=== PATIENT | male | born 1980 | race Caucasian/White ===

== ENCOUNTER 2018-05-05 07:20 | Emergency (ER) | payer MEDICAID, OTHER ==
[~2018-05-05] VITALS: Ht 170.2 cm; Wt 86.4 kg
[~2018-05-05 07:20] MED LIST: IBUP-812 PO; NO HOME MEDS; ONDA4TAB59 PO
[2018-05-05] MEDS ORDERED: ketorolac tromethamine 15mg/ml inj. IV ONE (08:15)
[2018-05-05] MEDS ORDERED: normal saline 1000ML IV soln IVB ONE (08:15)
[2018-05-05 08:20] LABS: BASOPHILS % (AUTO) 0.3 % (0-1); EOSINOPHILS # (AUTO) 0.1 X10'3 (0-0.9); EOSINOPHILS % (AUTO) 1.3 % (0-6); HEMATOCRIT 47.8 % (42.0-52.0); HEMOGLOBIN 16.3 g/dl (14.0-17.9); LYMPHOCYTES # (AUTO) 1.6 X10'3 (1.1-4.8); LYMPHOCYTES % (AUTO) 26.7 % (21-51); MEAN CORPUSCULAR HEMOGLOBIN 32.4 PG (27.0-31.0); MEAN CORPUSCULAR HGB CONC 34.1 g/dL (33.0-36.5); MEAN CORPUSCULAR VOLUME 94.9 FL (78-98); MEAN PLATELET VOLUME 10.1 FL (7.4-10.4); MONOCYTES # (AUTO) 0.5 X10'3 (0-0.9); MONOCYTES % (AUTO) 8.6 % (2-12); NEUTROPHILS # (AUTO) 3.7 X10'3 (1.8-7.7); NEUTROPHILS % (AUTO) 63.1 % (42-75); PLATELET COUNT 155 X10'3 (140-440); RED BLOOD COUNT 5.04 X10'6 (4.70-6.10); RED CELL DISTRIBUTION WIDTH 13.3 % (11.5-14.5); WHITE BLOOD COUNT 5.9 X10'3 (4.5-11.0)
[2018-05-05 08:36] LABS: ALANINE AMINOTRANSFERASE 25 U/L (12-78); ALBUMIN 3.6 G/DL (3.4-5.0); ALKALINE PHOSPHATASE 45 IU/L (46-116); ANION GAP 6 (8-16); ASPARTATE AMINO TRANSFERASE 18 U/L (10-37); BILIRUBIN,TOTAL 0.4 MG/DL (0.1-1.0); BLOOD UREA NITROGEN 22 MG/DL (7-18); BUN/CREATININE RATIO 22.9 (5.4-32.0); CHLORIDE 106 MMOL/L (99-107); CREATININE 0.96 MG/DL (0.60-1.10); GLUCOSE 94 MG/DL (70-104); LIPASE 168 U/L (73-393); POTASSIUM 4.3 MMOL/L (3.5-5.1); SODIUM 140 MMOL/L (135-145); TOTAL CARBON DIOXIDE 28.2 MMOL/L (24-32); TOTAL PROTEIN 7.1 G/DL (6.4-8.2); eGFR 87 ML/MIN
--- NOTE | 2018-05-05 09:48 | NUR ---
PT. IV FLUID IS COMPLETE. IV FLUSHED WITH SAILINE FLUSH. PT. AMBULATED TO THE BATHROOM TO GIVE A URINE SAMPLE.
[2018-05-05] MEDS ORDERED: OMEP40CA37 PO (10:10)
[2018-05-05 10:29] VITALS: BP 131/90
== END 2018-05-05 10:31 | disposition home or self-care (01) ==
LOC: ER 07:21
DX: R10.32 Left lower quadrant pain (principal); R19.7 Diarrhea, unspecified; R10.84 Generalized abdominal pain; F12.90 Cannabis use, unspecified, uncomplicated; Z86.14 Personal history of Methicillin resistant Staphylococcus aureus infection; Z79.899 Other long term (current) drug therapy
CPT/HCPCS: 36415; 74176; 80053; 83690; 85025; 85610; 96361; 96374; 99284; J1885; J7030

== ENCOUNTER 2019-07-21 18:09 | Emergency (ER) | payer MEDICAID, OTHER ==
[~2019-07-21] VITALS: Ht 170.2 cm; Wt 86.4 kg
--- NOTE | 2019-07-21 19:47 | NUR ---
pt refusing c-collar, he states it makes him "feel better when it's off" he was instructed on the risk of taking c-collar off.
[2019-07-21] MEDS ORDERED: ibuprofen tablet 400 MG TABLET PO ONE (19:55)
[2019-07-21] MEDS ORDERED: TETanus/Pertussis (Acell)/Diphther VAC/PF (Tdap-Adult) 0.5ml syringe IMVAC ONE (19:55)
[2019-07-21 20:08] VITALS: BP 120/85
[2019-07-21] MEDS ORDERED: IBUP-1984 PO (20:12)
== END 2019-07-21 20:35 | disposition home or self-care (01) ==
LOC: ER 18:10
DX: S50.812A Abrasion of left forearm, initial encounter (principal); S50.811A Abrasion of right forearm, initial encounter; F12.90 Cannabis use, unspecified, uncomplicated; Z86.14 Personal history of Methicillin resistant Staphylococcus aureus infection; Z79.899 Other long term (current) drug therapy; V89.2XXA Person injured in unspecified motor-vehicle accident, traffic, initial encounter; Y93.55 Activity, bike riding; Y92.89 Other specified places as the place of occurrence of the external cause; Y99.8 Other external cause status
CPT/HCPCS: 90471; 90715; 99283

== ENCOUNTER 2021-07-07 09:18 | Emergency (ER) | payer OTHER ==
[~2021-07-07] VITALS: Ht 170.2 cm; Wt 84.1 kg
[2021-07-07 09:59] VITALS: BP 129/85
[2021-07-07] MEDS ORDERED: BUPIVAcaine/PF 7.5 mg/ml (0.75%) 30ml vial IJ ONE (11:00)
[2021-07-07] MEDS ORDERED: naproxen 500mg tablet PO ONE (11:00)
[2021-07-07] MEDS ORDERED: diazepam 5mg tablet PO ONE (12:00)
[2021-07-07] MEDS ORDERED: DIAZ5TAB22 PO (12:34)
== END 2021-07-07 13:13 | disposition home or self-care (01) ==
LOC: ER 09:19
DX: M54.50 Low back pain, unspecified (principal); F19.10 Other psychoactive substance abuse, uncomplicated; F12.90 Cannabis use, unspecified, uncomplicated; Z86.14 Personal history of Methicillin resistant Staphylococcus aureus infection; Z79.899 Other long term (current) drug therapy
CPT/HCPCS: 20553; 99283; 99284

== ENCOUNTER 2023-06-14 13:22 | Emergency (ER) | payer BC, OTHER ==
[~2023-06-14] VITALS: Ht 172.7 cm; Wt 83.8 kg
[2023-06-14 13:26] VITALS: TEMP 98.5
[2023-06-14 13:51] VITALS: BP 103/73; PULSE 73; RESP 14; O2SAT 98
[2023-06-14 14:04] LABS: BASOPHILS % (AUTO) 0.4 % (0-1); EOSINOPHILS # (AUTO) 0.1 X10'3 (0-0.9); EOSINOPHILS % (AUTO) 0.7 % (0-6); HEMATOCRIT 46.7 % (42.0-52.0); HEMOGLOBIN 15.9 g/dl (14.0-17.9); LYMPHOCYTES # (AUTO) 1.7 X10'3 (1.1-4.8); LYMPHOCYTES % (AUTO) 23.3 % (21-51); MEAN CORPUSCULAR HEMOGLOBIN 32.1 PG (27.0-31.0); MEAN CORPUSCULAR HGB CONC 34.1 g/dL (33.0-36.5); MEAN CORPUSCULAR VOLUME 94.2 FL (78-98); MEAN PLATELET VOLUME 9.9 FL (7.4-10.4); MONOCYTES # (AUTO) 0.4 X10'3 (0-0.9); MONOCYTES % (AUTO) 5.6 % (2-12); PLATELET COUNT 187 X10'3 (140-440); RED BLOOD COUNT 4.96 X10'6 (4.70-6.10); RED CELL DISTRIBUTION WIDTH 13.3 % (11.5-14.5); WHITE BLOOD COUNT 7.1 X10'3 (4.5-11.0)
[2023-06-14] MEDS ORDERED: ketorolac trometh. 30mg/ml inj. IV ONE (14:35)
[2023-06-14 14:36] LABS: ALANINE AMINOTRANSFERASE 18 U/L (12-78); ALBUMIN 3.6 G/DL (3.4-5.0); ALBUMIN/GLOBULIN RATIO 0.9 (1.1-1.5); ALKALINE PHOSPHATASE 53 IU/L (46-116); ANION GAP 4 (8-16); ASPARTATE AMINO TRANSFERASE 14 U/L (10-37); BILIRUBIN,TOTAL 0.5 MG/DL (0.1-1.0); BLOOD UREA NITROGEN 18 MG/DL (7-18); BUN/CREATININE RATIO 16.7 (10.0-20.0); CALCIUM 9.2 MG/DL (8.5-10.1); CHLORIDE 102 MMOL/L (99-107); CREATININE 1.08 MG/DL (0.60-1.10); GLUCOSE 147 MG/DL (70-104); POTASSIUM 4.2 MMOL/L (3.5-5.1); PRO BRAIN NATRIURETIC PEPTIDE 128 PG/ML (0-125); SODIUM 138 MMOL/L (135-145); TOTAL CARBON DIOXIDE 32.1 MMOL/L (24-32); TOTAL PROTEIN 7.7 G/DL (6.4-8.2); eCRCL 84 ML/MIN; eGFR 74 ML/MIN
[2023-06-14] MEDS: dexamethasone sod phosphate 10mg/ml inj IV STA (14:43)
[2023-06-14] MEDS: ketorolac tromethamine 15mg/ml inj. IV ONE (14:43)
[2023-06-14] MEDS ORDERED: TRAM50TA2 PO ×2 (15:20→15:23)
[2023-06-14] MEDS ORDERED: CELE-193 PO (15:20)
== END 2023-06-14 16:00 | disposition home or self-care (01) ==
LOC: ER 13:23
DX: R07.89 Other chest pain (principal); M54.6 Pain in thoracic spine; M54.50 Low back pain, unspecified; F12.90 Cannabis use, unspecified, uncomplicated; Z79.1 Long term (current) use of non-steroidal anti-inflammatories (NSAID); Z79.899 Other long term (current) drug therapy
CPT/HCPCS: 36415; 71045; 80053; 83880; 84484; 85025; 93005; 96374; 96375; 99285; J1100; J1885

== ENCOUNTER 2024-02-17 07:04 | Emergency (ER) | payer BC, OTHER ==
[~2024-02-17] VITALS: Ht 170.2 cm; Wt 86.2 kg
[~2024-02-17 07:04] MED LIST changes: +CELE-193 PO
[2024-02-17 07:13] VITALS: BP 128/91; PULSE 63; O2SAT 99
[2024-02-17 10:25] VITALS: RESP 16
[2024-02-17] MEDS: ketorolac trometh 15mg/ml vial 15 MG/ML ML IM ONE (10:25)
[2024-02-17] MEDS: BUPIVAcaine/PF 2.5mg/ml (0.25%) 10ml vial IJ ONE (10:40)
[2024-02-17] MEDS: triamcinolone acetonide 40mg/ml inj IM ONE (10:40)
[2024-02-17] MEDS ORDERED: PRED20TA PO (10:45)
[2024-02-17] MEDS ORDERED: HYDR-3965 PO (10:45)
[2024-02-17 10:56] VITALS: TEMP 98.4
== END 2024-02-17 10:58 | disposition home or self-care (01) ==
LOC: ER 07:05
DX: M54.50 Low back pain, unspecified (principal); F12.90 Cannabis use, unspecified, uncomplicated; G89.29 Other chronic pain; Z79.2 Long term (current) use of antibiotics; Z79.899 Other long term (current) drug therapy
CPT/HCPCS: 20552; 72100; 96372; 99284; J1885